=== PATIENT | male | born 2000 | race Caucasian/White ===

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

== ENCOUNTER 2019-07-12 03:00 | Emergency (ER) | payer BC ==
[2019-07-12 03:06] VITALS: BP 138/76; PULSE 78; RESP 18; TEMP 98.1
[2019-07-12] MEDS ORDERED: IBUPROFEN 600 MG STARTER PACK 4 TAB BTL PO STA (03:18)
[2019-07-12] MEDS ORDERED: DIPH,PERTUS(ACELL)TETVAC-LF 0.5 ML VIAL IM ONE (03:18)
[2019-07-12] MEDS ORDERED: ACET/COD 300 MG/30 MG STARTER PACK 6 TAB BTL PO STA (03:18)
[2019-07-12] MEDS ORDERED: CEPHALEXIN 500MG STARTER PACK 4 CAP BTL PO STA (03:18)
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
== END 2019-07-12 03:50 | disposition home or self-care (01) ==
LOC: EC 03:00
DX: T23.272A Burn of second degree of left wrist, initial encounter (principal); F90.9 Attention-deficit hyperactivity disorder, unspecified type; Z23 Encounter for immunization; Z79.899 Other long term (current) drug therapy; W01.0XXA Fall on same level from slipping, tripping and stumbling without subsequent striking against object, initial encounter; Y92.009 Unspecified place in unspecified non-institutional (private) residence as the place of occurrence of the external cause
CPT/HCPCS: 90471; 90715; 99283

== ENCOUNTER 2019-09-08 00:19 | Emergency (ER) | payer BC ==
[2019-09-08] MEDS ORDERED: guaiFENesin-DM 600/30MG 1 EACH TAB.ER.12H PO STA (01:39)
--- NOTE | 2019-09-08 02:06 | XR ---
EXAMINATION TYPE: XR chest 2V DATE OF EXAM: 09/08/2019 COMPARISON: 08/23/2006 HISTORY: Cough TECHNIQUE: Frontal and lateral views of the chest are obtained. FINDINGS: Heart and mediastinum are normal. Lungs are clear. Diaphragm is normal. Bony thorax appear s normal. IMPRESSION: Normal chest.
[2019-09-08 02:14] VITALS: BP 124/65; PULSE 60; RESP 17; TEMP 97.3
--- NOTE | 2019-09-08 02:21 | ED ---
General Adult HPI - General Chief complaint: Fever Stated complaint: Cough/Fever Time Seen by Provider: 09/08/19 01:31 Source: patient Mode of arrival: ambulatory Limitations: no limitations - History of Present Illness Initial comments: 19-year-old male patient presents to the emergency department today for evaluation of cough and fever. Patient states his been sick for the last week and a half with symptoms. States he has a persistent nonproductive cough. Patient states temperature was 100 a few days ago. Patient leaves he may have been exposed to asbestos at work. He does admit to vaping. Denies cigarette use. He is reporting a sore throat. Denies nasal congestion or drainage. Denies rash. Patient denies any recent shortness breath, chest pain, abdominal pain, nausea, vomiting, diarrhea, constipation, back pain, numbness, tingling, dizziness, weakness, hematuria, dysuria, urinary urgency, urinary frequency, headache, visual changes, or any other complaints. - Related Data Previous Rx's Medication Instructions Recorded Albuterol Sulfate [Proair Hfa] 1 - 2 puff INHALATION Q6HR PRN #1 09/08/19 inhaler guaiFENesin-DM 600/30MG [Mucinex 1 each PO Q12HR #10 tab.er.12h 09/08/19 Dm] methylPREDNISolone [Medrol Dose 4 mg PO DIRECTED #1 pack 09/08/19 Pack] Allergies Allergy/AdvReac Type Severity Reaction Status Date / Time No Known Allergies Allergy Verified 09/08/19 00:30 Review of Systems ROS Statement: Those systems with pertinent positive or pertinent negative responses have been documented in the HPI. ROS Other: All systems not noted in ROS Statement are negative. Past Medical History Additional Past Medical History / Comment(s): ADD History of Any Multi-Drug Resistant Organisms: None Reported Past Surgical History: No Surgical Hx Reported Past Psychological History: ADD/ADHD Smoking Status: Never smoker Past Alcohol Use History: None Reported Past Drug Use History: None Reported General Exam Limitations: no limitations General appearance: alert, in no apparent distress, other (This is a well- developed, well-nourished adult male patient in no acute distress. Vital signs upon presentation are temperature 97.7F, pulse 62, respirations 14, blood pressure 122/79, pulse ox 97% on room air.) Eye exam: Present: normal appearance, PERRL, EOMI. Absent: scleral icterus, conjunctival injection, periorbital swelling ENT exam: Present: normal exam, normal oropharynx, mucous membranes moist Respiratory exam: Present: normal lung sounds bilaterally. Absent: respiratory distress, wheezes, rales, rhonchi, stridor Cardiovascular Exam: Present: regular rate, normal rhythm, normal heart sounds. Absent: systolic murmur, diastolic murmur, rubs, gallop, clicks GI/Abdominal exam: Present: soft, normal bowel sounds. Absent: distended, tenderness, guarding, rebound, rigid Neurological exam: Present: alert, oriented X3, CN II-XII intact Psychiatric exam: Present: normal affect, normal mood Skin exam: Present: warm, dry, intact, normal color. Absent: rash Course Vital Signs 09/08/19 09/08/19 00:27 02:13 Temperature 97.7 F 97.3 F L Pulse Rate 62 60 Respiratory 14 17 Rate Blood Pressure 122/79 124/65 O2 Sat by Pulse 97 98 Oximetry Medical Decision Making - Medical Decision Making 19-year-old male patient presents to the emergency department today for evaluation of cough and congestion. He reports fever the other day. Lungs are clear to auscultation with good air movement. He is exerting no shortness of breath. Chest x-ray shows no acute cardio pulmonary process. He is afebrile with normal vital signs. He will be discharged and treated for acute bronchiti s. Treated with Pro Air, Medrol Dosepak, and Mucinex DM. He is instructed to follow up with his primary care physician for recheck in 1-2 days. Return parameters discussed in detail. He verbalizes understanding and agrees with this plan. - Radiology Data Radiology results: report reviewed, image reviewed Two-view x-ray of the chest is obtained. Report was reviewed in its entirety. Impression by Dr. Weeks shows normal chest. Disposition Clinical Impression: Upper respiratory infection, Acute bronchitis Disposition: HOME SELF-CARE Condition: Good Instructions (If sedation given, give patient instructions): Acute Bronchitis (ED) Additional Instructions: Increase fluids. Take medications as instructed. Follow-up through primary care physician for recheck in 1-2 days. Stop vaping. Prescriptions: methylPREDNISolone [Medrol Dose Pack] 4 mg PO DIRECTED #1 pack guaiFENesin-DM 600/30MG [Mucinex Dm] 1 each PO Q12HR #10 tab.er.12h Albuterol Sulfate [Proair Hfa] 1 - 2 puff INHALATION Q6HR PRN #1 inhaler PRN Reason: Shortness Of Breath Is patient prescribed a controlled substance at d/c from ED?: No Referrals: Bob Crooks DO [Primary Care Provider] - 1-2 days Time of Disposition: 02:21
== END 2019-09-08 02:26 | disposition home or self-care (01) ==
LOC: EC 00:19
DX: J20.9 Acute bronchitis, unspecified (principal); J06.9 Acute upper respiratory infection, unspecified
CPT/HCPCS: 71046; 99283

== ENCOUNTER 2019-10-02 13:55 | Emergency (ER) | payer BC, OTHER ==
[2019-10-02 14:23] VITALS: BP 108/71; PULSE 61; RESP 18; TEMP 97.9
[2019-10-02] MEDS ORDERED: IBUPROFEN 600 MG TAB PO STA (14:35)
--- NOTE | 2019-10-02 14:45 | XR ---
EXAMINATION TYPE: XR foot complete RT DATE OF EXAM: 10/02/2019 COMPARISON: NONE HISTORY: 19-year-old male with foot and heel pain after crushing injury TECHNIQUE: 3 views FINDINGS: Tiny ossific density along the dorsal aspect of the talar head seen on both the oblique and lateral v iews. No additional acute fracture, subluxation, or dislocation is seen. Subtalar joint is aligned. N o delineation to the Achilles tendon. IMPRESSION: Tiny bone fragment along the dorsal aspect of the talar head. This is age indeterminate. Correlate fo r any pinpoint tenderness here to exclude a tiny chip fracture or small capsular avulsion fracture.
--- NOTE | 2019-10-02 15:03 | ED ---
Lower Extremity Injury HPI - General Chief Complaint: Extremity Injury, Lower Stated Complaint: foot injury, [facility] Source: patient, family Mode of arrival: wheelchair Limitations: no limitations - History of Present Illness Initial Comments: 19-year-old male presented for right foot pain. Patient states he pinched his foot between 2 heavy machines at work. She states that it was not "alot of pressure or weight" however was painful. He states he has a small abrasion of the right posterior heel he states there is no large laceration states his tetanus up-to-date. Patient states the pain is mostly in the posterior heel he denies any pain at the ankle or forefoot. Patient denies any pain at the knee he states there is no noted bruising or significant swelling. Patient states is painful when he ambulates. Patient denies any other areas of injury or complaints remaining review of systems negative patient appears well arrival distress - Related Data Previous Rx's Medication Instructions Recorded Albuterol Sulfate [Proair Hfa] 1 - 2 puff INHALATION Q6HR PRN #1 09/08/19 inhaler guaiFENesin-DM 600/30MG [Mucinex 1 each PO Q12HR #10 tab.er.12h 09/08/19 Dm] methylPREDNISolone [Medrol Dose 4 mg PO DIRECTED #1 pack 09/08/19 Pack] Allergies Allergy/AdvReac Type Severity Reaction Status Date / Time No Known Allergies Allergy Verified 09/08/19 00:30 Review of Systems ROS Statement: Those systems with pertinent positive or pertinent negative responses have been documented in the HPI. ROS Other: All systems not noted in ROS Statement are negative. Past Medical History Additional Past Medical History / Comment(s): ADD History of Any Multi-Drug Resistant Organisms: None Reported Past Surgical History: No Surgical Hx Reported Past Psychological History: ADD/ADHD Smoking Status: Never smoker Past Alcohol Use History: None Reported Past Drug Use History: None Reported General Exam - General Exam Comments Initial Comments: General: The patient is awake and alert, in no distress, and does not appear acutely ill. Eye: Pupils are equal, round and reactive to light, extra-ocular movements are intact. No nystagmus. There is normal conjunctiva bilaterally. No signs of icterus. Cardiovascular: There is a regular rate and rhythm. No murmur, rub or gallop is appreciated. Respiratory: Lungs are clear to auscultation, respirations are non-labored, breath sounds are equal. No wheezes, stridor, rales, or rhonchi. Musculoskeletal: Normal inspection of the feet b/l aside from a smll superficial abrasion of the posteior right heel. Pain over the head of talus andpenis. Patient has no pain over the ankle mortise medial malleolus malleolus or proximal tibia and fibula. No evidence of foot drop. Full strength of the foot and ankle. Sensation intact proximal distal to injury site +2 dorsalis pedis pulses equal comparison bilaterally. Neurological: A&O x 3. CN II-XII intact, There are no obvious motor or sensory deficits. Coordination appears grossly intact. Speech is normal. Skin: Skin is warm and dry and no rashes or lesions are noted. Psychiatric: Cooperative, appropriate mood & affect, normal judgment. Limitations: no limitations Course Vital Signs 10/02/19 14:17 Temperature 97.9 F Pulse Rate 61 Respiratory 18 Rate Blood Pressure 108/71 O2 Sat by Pulse 99 Oximetry Medical Decision Making - Medical Decision Making talus head chip fracture. Patient is placed in splint recommended orthopedic follow-up with nonweightbearing instructions until clearance by orthopedic surgery. Patient neurovascularly intact. No significant swelling or ecchymosis noted very superficial abrasion. Patient is agreeable to plan and return parameters and importance of follow-up given prescription for crutches. Discussed case with Dr. Ortiz reviewed imaging studies and is agreeable to plan Disposition Clinical Impression: Closed fracture of head of talus, Foot pain, Right foot injury Disposition: HOME SELF-CARE Condition: Good Instructions (If sedation given, give patient instructions): Talar Fracture in Adults (ED) Additional Instructions: Please use medication as discussed. Please follow-up with orthopedics in the next 2 days. Do not bear weight use crutches for all ambulation please until orthopedic instruction. Please return to emergency room if the symptoms increase or worsen or for any other concerns. Is patient prescribed a controlled substance at d/c from ED?: No Referrals: Bob Crooks DO [Primary Care Provider] - 1-2 days Seth Schwartz MD [STAFF PHYSICIAN] - 1-2 days Time of Disposition: 15:01
--- NOTE | 2019-10-06 06:04 | CDI ---
Dear Cherise Whitney PA-C: Please do addendum type of the splint placed. Thank You, Papo Lee, Supervisor [employer]. If you have any questions, please contact Repair Department Supervisor at [phone]. [facility]
== END 2019-10-02 15:14 | disposition home or self-care (01) ==
LOC: EC 13:55
DX: S92.121A Displaced fracture of body of right talus, initial encounter for closed fracture (principal); W31.89XA Contact with other specified machinery, initial encounter; Y92.69 Other specified industrial and construction area as the place of occurrence of the external cause; Y99.0 Civilian activity done for income or pay
CPT/HCPCS: 29515; 99283

== ENCOUNTER 2020-12-29 22:47 | Emergency (ER) | payer BC, OTHER ==
--- NOTE | 2020-12-30 00:18 | ED ---
URI HPI - General Chief Complaint: Upper Respiratory Infection Stated Complaint: Fever Time Seen by Provider: 12/30/20 00:03 Source: patient, RN notes reviewed Mode of arrival: ambulatory Limitations: no limitations - History of Present Illness Initial Comments: Patient is a 20-year-old male that presents to emergency department complaining of sinus congestion for the last 2 days with a mild fever. He notes that he feels fine otherwise and wanted to come emergency room to get tested to make sure his Covid status. He was in no apparent distress or pain while sitting up in the chair during exam and interview. He was in no pain had no other issues or complaints. He was well-appearing well-hydrated. He denied any chest pain shortness breath headache nausea vomiting diarrhea constipation fatigue or chills. - Related Data Previous Rx's Medication Instructions Recorded Albuterol Sulfate [Proair Hfa] 1 - 2 puff INHALATION Q6HR PRN #1 09/08/19 inhaler guaiFENesin-DM 600/30MG [Mucinex 1 each PO Q12HR #10 tab.er.12h 09/08/19 Dm] methylPREDNISolone [Medrol Dose 4 mg PO DIRECTED #1 pack 09/08/19 Pack] Allergies Allergy/AdvReac Type Severity Reaction Status Date / Time No Known Allergies Allergy Verified 12/29/20 22:59 Review of Systems ROS Statement: Those systems with pertinent positive or pertinent negative responses have been documented in the HPI. ROS Other: All systems not noted in ROS Statement are negative. Past Medical History Additional Past Medical History / Comment(s): ADD History of Any Multi-Drug Resistant Organisms: None Reported Past Surgical History: No Surgical Hx Reported Past Psychological History: ADD/ADHD Smoking Status: Never smoker Past Alcohol Use History: None Reported Past Drug Use History: None Reported General Exam Limitations: no limitations General appearance: alert, in no apparent distress Head exam: Present: atraumatic, normocephalic, normal inspection ENT exam: Present: normal exam, mucous membranes moist Neck exam: Present: normal inspection. Absent: tenderness, meningismus, lymphadenopathy Respiratory exam: Present: normal lung sounds bilaterally. Absent: respiratory distress, wheezes, rales, rhonchi, stridor Cardiovascular Exam: Present: regular rate, normal rhythm, normal heart sounds. Absent: systolic murmur, diastolic murmur, rubs, gallop, clicks GI/Abdominal exam: Present: soft, normal bowel sounds. Absent: distended, tenderness, guarding, rebound, rigid Extremities exam: Present: normal inspection, full ROM, normal capillary refill. Absent: tenderness, pedal edema, joint swelling, calf tenderness Neurological exam: Present: alert, oriented X3, CN II-XII intact Psychiatric exam: Present: normal affect, normal mood Skin exam: Present: warm, dry, intact, normal color. Absent: rash Course Vital Signs 12/29/20 22:57 Pulse Rate 83 Respiratory 18 Rate Blood Pressure 134/89 O2 Sat by Pulse 98 Oximetry Medical Decision Making - Medical Decision Making 20-year-old male complaining of sinus congestion and mild fever for 2 days. Covid test ordered. Covid test positive. Vital signs stable. Case discussed with Dr. Roberts, patient can discharge home with conservative management. - Lab Data Lab Results 12/29/20 Range/Units 23:03 Coronavirus (PCR) Detected A (Not Detectd) Disposition Clinical Impression: COVID-19 Disposition: HOME SELF-CARE Condition: Stable Instructions (If sedation given, give patient instructions): Upper Respiratory Infection (ED), Coronavirus Disease 2019 (COVID-19) Additional Instructions: Please return to the Emergency Department if symptoms worsen or any other concerns. Can take [id number] anti-inflammatories for fevers muscle aches. Follow-up with primary care as soon as possible. Per CBC guidelines quarantine for 10-14 days from onset of symptoms. Is patient prescribed a controlled substance at d/c from ED?: No Referrals: Bob Crooks DO [Primary Care Provider] - 1-2 days Time of Disposition: 00:17
[2020-12-30 01:16] VITALS: RESP 20
[2020-12-30 01:18] VITALS: BP 130/75; PULSE 90; TEMP 99
== END 2020-12-30 01:00 | disposition home or self-care (01) ==
LOC: EC 22:47
DX: U07.1 COVID-19 (principal); F90.9 Attention-deficit hyperactivity disorder, unspecified type
CPT/HCPCS: 87635; 99283